=== PATIENT | male | born 1955 | race Caucasian/White ===

== ENCOUNTER 2016-05-03 12:04 | Emergency (ER) | payer BC ==
[~2016-05-03] VITALS: Ht 175.3 cm; Wt 75.4 kg
[2016-05-03 12:13] VITALS: BP 139/84; PULSE 88; RESP 16; TEMP 98.1; O2SAT 95
[2016-05-03] MEDS ORDERED: ALPR.25 PO (12:30)
[2016-05-03] MEDS ORDERED: [UNRECOGNIZED DRUG - OTHER] PO (12:30)
[2016-05-03] MEDS ORDERED: CIAL5TAB PO (12:30)
[2016-05-03] MEDS ORDERED: [UNRECOGNIZED DRUG - REMARK] PO (12:30)
[2016-05-03] MEDS ORDERED: VALA500T PO (12:30)
[2016-05-03] MEDS ORDERED: DIATRIZOATE MEGLUM/DIATRIZOATE SOD 9 ML CUP ONE (12:35)
[2016-05-03 12:40] VITALS: RESP 15; O2SAT 99
[2016-05-03] MEDS ORDERED: SODIUM CHLORIDE 0.9% FLUSH 5 ML FLUSH IVF PRN (12:45)
[2016-05-03 12:49] LABS: AUTOMATED NEUTROPHIL # 4.4 TH/MM3 (1.8-7.7); BASOPHIL % 0.8 % (0.0-2.0); EOSINOPHIL # 0.1 TH/MM3 (0-0.4); EOSINOPHIL % 1.4 % (0.0-4.0); HEMATOCRIT 49.8 % (39.0-51.0); LYMPH % 11.6 % (9.0-44.0); LYMPHOCYTE # 0.7 TH/MM3 (1.0-4.8); MEAN CELL VOLUME 86.4 FL (80.0-100.0); MEAN CORPUSCULAR HEMOGLOBIN 29.2 PG (27.0-34.0); MEAN CORPUSCULAR HGB CONC 33.7 % (32.0-36.0); MONO % 6.4 % (0.0-8.0); NEUT % 79.8 % (16.0-70.0); PLATELET COUNT 146 TH/MM3 (150-450); RED BLOOD COUNT 5.76 MIL/MM3 (4.50-5.90); RED CELL DISTRIBUTION WIDTH 12.8 % (11.6-17.2); WHITE BLOOD COUNT 5.6 TH/MM3 (4.0-11.0)
[2016-05-03 12:57] LABS: BLOOD, URINE NEG (NEG); CHLORIDE 102 MEQ/L (98-107); GLUCOSE,URINE NEG (NEG); KETONE, URINE NEG (NEG); NITRITE,URINE NEG (NEG); PH, URINE 6.5 (5.0-8.5); SODIUM (NA) 140 MEQ/L (136-145)
[2016-05-03 12:58] LABS: HEMO FLAGS DIFF FINAL
[2016-05-03 12:59] LABS: METHOD OF COLLECTION CLEAN CATCH; URINE COLOR YELLOW (YELLW/STRAW)
[2016-05-03 13:00] LABS: ANION GAP 8 MEQ/L (5-15); BICARBONATE 30.3 MEQ/L (21.0-32.0)
[2016-05-03 13:01] LABS: BLOOD UREA NITROGEN 11 MG/DL (7-18)
--- NOTE | 2016-05-03 13:02 | PD ---
HPI Chief Complaint: Abdominal Pain Time Seen by Provider: 12:28 Travel History International Travel<30 days: No Contact w/Intl Traveler<30days: No Traveled to known affect area: No History of Present Illness HPI Patient is a 60-year-old male with history of cholecystectomy and appendectomy who presents the emergency department with complaint of abdominal pain and constipation. Patient has had approximately 3-4 weeks of issues with constipation. He has been taking MiraLAX 1-2 times daily and was recently started on Relistor. Over the last 2 days his BMs have decrease further and he is passing very small amount of stool, flatus and now has nausea with diffuse abdominal cramping. No vomiting. No history of bowel obstruction but again as above he has had previous abdominal surgery. Patient notes increasing urinary frequency as well. No dysuria or hematuria. PFSH Past Medical History Hx Anticoagulant Therapy: No Diabetes: No Neurologic: Yes (TINITIS) Past Surgical History Appendectomy: Yes Cholecystectomy: Yes Social History Alcohol Use: No Tobacco Use: No Substance Use: No Allergies-Medications (Allergen,Severity, Reaction): Coded Allergies: Reglan (Verified Allergy, Severe, 05/03/16) Reported Meds & Prescriptions Reported Meds & Active Scripts Active Reported Valacyclovir (Valacyclovir HCl) 500 Mg Tab 500 Mg PO DAILY Cialis (Tadalafil) 5 Mg Tab 5 Mg PO DAILY Do not exceed 1 dose/day. Xanax (Alprazolam) 0.25 Mg Tab 0.25 Mg PO Q4H PRN [[place]] 300 Mcg PO TID [Relastor] PO DAILY Review of Systems Except as stated in HPI: all other systems reviewed are Neg Physical Exam Narrative GENERAL: Well-appearing male in no acute distress SKIN: Warm and dry. HEAD: Normocephalic. EYES: No scleral icterus. No injection or drainage. ENT: Mucous membranes pink and moist. NECK: Supple CARDIOVASCULAR: Regular rate and rhythm. RESPIRATORY: No accessory muscle use. GASTROINTESTINAL: Abdomen soft, non-tender, nondistended. MUSCULOSKELETAL: Normal gait NEUROLOGICAL: Awake and alert. Normal speech. PSYCHIATRIC: Appropriate mood and affect; insight and judgment normal. Data Data Last Documented VS Vital Signs Date Time Temp Pulse Resp B/P Pulse Ox O2 Delivery O2 Flow Rate FiO2 05/03/16 13:51 78 15 132/81 05/03/16 12:40 99 Room Air 05/03/16 12:13 98.1 Orders Complete Blood Count With Diff (05/03/16 12:33) Comprehensive Metabolic Panel (05/03/16 12:33) Lipase (05/03/16 12:33) Urinalysis - C+S If Indicated (05/03/16 12:33) Ct Abd/Pel W Iv Contrast(Rout) (05/03/16 12:33) Iv Access Insert/Monitor (05/03/16 12:33) Ecg Monitoring (05/03/16 12:33) Oximetry (05/03/16 12:33) Sodium Chloride 0.9% Flush (Ns Flush) (05/03/16 12:45) Oral Contrast - Adult (05/03/16 12:35) Diatrizoate Liq ( Gastroview Liq) (05/03/16 12:35) Iohexol 350 Inj (Omnipaque 350 Inj) (05/03/16 14:13) Labs Laboratory Tests Test 05/03/16 12:40 White Blood Count 5.6 TH/MM3 Red Blood Count 5.76 MIL/MM3 Hemoglobin 16.8 GM/DL Hematocrit 49.8 % Mean Corpuscular Volume 86.4 FL Mean Corpuscular Hemoglobin 29.2 PG Mean Corpuscular Hemoglobin 33.7 % Concent Red Cell Distribution Width 12.8 % Platelet Count 146 TH/MM3 Mean Platelet Volume 8.4 FL Neutrophils (%) (Auto) 79.8 % Lymphocytes (%) (Auto) 11.6 % Monocytes (%) (Auto) 6.4 % Eosinophils (%) (Auto) 1.4 % Basophils (%) (Auto) 0.8 % Neutrophils # (Auto) 4.4 TH/MM3 Lymphocytes # (Auto) 0.7 TH/MM3 Monocytes # (Auto) 0.4 TH/MM3 Eosinophils # (Auto) 0.1 TH/MM3 Basophils # (Auto) 0.0 TH/MM3 CBC Comment DIFF FINAL Differential Comment Urine Collection Type CLEAN CATCH Urine Color YELLOW Urine Turbidity CLEAR Urine pH 6.5 Urine Specific Lena 1.004 Urine Protein NEG mg/dL Urine Glucose (UA) NEG mg/dL Urine Ketones NEG mg/dL Urine Occult Blood NEG Urine Nitrite NEG Urine Bilirubin NEG Urine Leukocyte Esterase NEG Urine WBC 0-2 /hpf Microscopic Urinalysis Comment CULT NOT INDICATED Sodium Level 140 MEQ/L Potassium Level 4.0 MEQ/L Chloride Level 102 MEQ/L Carbon Dioxide Level 30.3 MEQ/L Anion Gap 8 MEQ/L Blood Urea Nitrogen 11 MG/DL Creatinine 1.00 MG/DL Estimat Glomerular Filtration 76 ML/MIN Rate Random Glucose 108 MG/DL Calcium Level 8.5 MG/DL Total Bilirubin 3.2 MG/DL Aspartate Amino Transf 13 U/L (AST/SGOT) Alanine Aminotransferase 23 U/L (ALT/SGPT) Alkaline Phosphatase 80 U/L Total Protein 7.3 GM/DL Albumin 4.2 GM/DL Lipase 56 U/L [facility] Medical Decision Making Medical Screen Exam Complete: Yes Emergency Medical Condition: Yes Medical Record Reviewed: Yes Differential Diagnosis 60-year-old male with history of cholecystectomy and appendectomy here with 1 month of constipation increasing over the last 2 days with decreased flatus, nausea and abdominal cramping, urinary frequency. Differential includes constipation, ileus, bowel obstruction, UTI. Abdominal examination is benign making peritoneal pathology unlikely. Narrative Course Patient placed on monitor, IV established and blood obtained. CBC, CMP, lipase , urinalysis obtained and unremarkable. CT abdomen and pelvis showed mild colonic wall thickening in the ascending colon. Possible low-grade colitis in the proper clinical setting. Clinically patient however is not having any diarrhea and is instead constipated. Patient was given Bentyl, lactulose will be prescribed same for home. Diagnosis Primary Impression: Constipation Qualified Code: K59.00 - Constipation, unspecified constipation type Referrals: Primary Care Physician as needed Additional Instructions: Continue MiraLAX as prescribed. Bentyl as needed for abdominal cramping. Add lactulose to bowel regimen. Return to the ER for the warning signs discussed. Med/Other Pt SpecificInfo: Prescription(s) given Scripts Dicyclomine (Bentyl)20 Mg Tab20 Mg PO QID #30 TAB Ref 0 Prov:Erum Poole MD 05/03/16 Lactulose Liq 10 Gm/15 Ml Soln30 Ml PO Q6H PRN (CONSTIPATION) #840 ML Ref 0 Prov:Erum Poole MD 05/03/16 Disposition: 01 DISCHARGE HOME Condition: Stable Erum Poole MD May 03, 2016 13:02
[2016-05-03 13:03] LABS: ALT (GPT) 23 U/L (12-78); AST (GOT) 13 U/L (15-37)
[2016-05-03 13:04] LABS: GLOMERULAR FILTRATION RATE 76 ML/MIN (>89)
[2016-05-03 13:05] LABS: COMMENT (UR) CULT NOT INDICATED; CULTURE IF INDICATED CULT NOT INDICATED; TOTAL BILIRUBIN ADULT 3.2 MG/DL (0.2-1.0); WBC, URINE 0-2 /hpf (0-5)
[2016-05-03 13:06] LABS: ALKALINE PHOSPHATASE 80 U/L (45-117)
[2016-05-03 13:51] VITALS: BP 132/81; PULSE 78; RESP 15
[2016-05-03] MEDS ORDERED: IOHEXOL 350 MG/ML 10 ML VIAL (for RAD DIAG) IV ONE (14:13)
--- NOTE | 2016-05-03 14:29 | RADHPO ---
EXAM DATE/TIME: 05/03/2016 14:00 [facility] COMPARISON: No previous studies available for comparison. INDICATIONS : Lower abdomen pain for two days. IV CONTRAST: 70 cc Omnipaque 350 (iohexol) IV ORAL CONTRAST: Prescribed oral contrast ingested. RADIATION DOSE: 8.19 CTDIvol (mGy) MEDICAL HISTORY : None SURGICAL HISTORY : Appendectomy. Cholecystectomy. ENCOUNTER: Initial ACUITY: 2 days PAIN SCALE: 7/10 LOCATION: Bilateral lower quadrant TECHNIQUE: Volumetric scanning of the abdomen and pelvis was performed. Using automated exposure control and ad justment of the mA and/or kV according to patient size, radiation dose was kept as low as reasonably achievable to obtain optimal diagnostic quality images. FINDINGS: LOWER LUNGS: The visualized lower lungs are clear. LIVER: Homogeneous density without lesion. There is no dilation of the biliary tree. No calcified gallston es. SPLEEN: Normal size without lesion. PANCREAS: Within normal limits. KIDNEYS: 15 mm cyst right mid zone. 8mm cyst left mid zone. No hydronephrosis. ADRENAL GLANDS: Within normal limits. VASCULAR: There is no aortic aneurysm. BOWEL/MESENTERY: There is mild colonic wall thickening, mainly in the region of the ascending colon. No high-grade inf lammatory changes are seen. Moderate stool throughout the colon. Mild diverticulosis of the sigmoid. ABDOMINAL WALL: Within normal limits. RETROPERITONEUM: There is no lymphadenopathy. BLADDER: No wall thickening or mass. REPRODUCTIVE: Within normal limits. INGUINAL: There is no lymphadenopathy or hernia. MUSCULOSKELETAL: No acute bony abnormality demonstrated. CONCLUSION: Possible low-grade colitis in the proper clinical setting. No high-grade inflammatory changes or obst ruction. Mild diverticulosis of the sigmoid. Small, benign cysts of both kidneys. Mathew Gabriel MD on May 03, 2016 at 14:25 Board Certified Radiologist. This report was verified electronically.
[2016-05-03] MEDS ORDERED: LACT10SO PO (14:49)
[2016-05-03] MEDS ORDERED: BENT20TA PO (14:49)
[2016-05-03] MEDS ORDERED: LACTULOSE SYRUP 20 GM/30 ML CUP PO ONE (15:00)
[2016-05-03] MEDS ORDERED: DICYCLOMINE HCL 10 MG CAP PO ONE (15:00)
== END 2016-05-03 15:13 | disposition home or self-care (01) ==
LOC: PHED 12:04
DX: K59.00 Constipation, unspecified (principal)
CPT/HCPCS: 74177; 80053; 81001; 83690; 85025; 99284; Q9963; Q9967